=== PATIENT | female | born 1945 | race Caucasian/White ===

== ENCOUNTER 2023-09-03 19:18 | Emergency (ER) | payer MEDICARE ==
[~2023-09-03] VITALS: Ht 160 cm; Wt 70.3 kg
[2023-09-03] MEDS ORDERED: LOVASTATIN20 MG (20:07)
[2023-09-03] MEDS ORDERED: MICARDIS20 MG (20:07)
[2023-09-03] MEDS ORDERED: ATENOLOL50 MG (20:07)
[2023-09-03] MEDS ORDERED: PERCOCET 5-3251 EACH PO (20:56)
[2023-09-03 21:48] VITALS: BP 142/85
== END 2023-09-03 21:52 | disposition home or self-care (01) ==
LOC: ED 19:18
DX: S22.31XA Fracture of one rib, right side, initial encounter for closed fracture (principal); I10 Essential (primary) hypertension; E78.5 Hyperlipidemia, unspecified; Z79.899 Other long term (current) drug therapy; Z88.5 Allergy status to narcotic agent; W18.30XA Fall on same level, unspecified, initial encounter
CPT/HCPCS: 71250; 99283-25; A9270